=== PATIENT | male | born 1985 | race Caucasian/White ===

== ENCOUNTER 2020-06-12 15:11 | Emergency (ER) | payer OTHER ==
[~2020-06-12] VITALS: Ht 185.4 cm; Wt 95.3 kg
[2020-06-12] MEDS ORDERED: KEFLEX500 MG PO (16:51)
== END 2020-06-12 17:00 | disposition home or self-care (01) ==
LOC: ED 15:11
DX: S61.022A Laceration with foreign body of left thumb without damage to nail, initial encounter (principal); F17.200 Nicotine dependence, unspecified, uncomplicated; W27.8XXA Contact with other nonpowered hand tool, initial encounter; Y99.0 Civilian activity done for income or pay
CPT/HCPCS: 12042; 73140; 90471; 90715; 99283-25